=== PATIENT | female | born 1935 | race Caucasian/White ===

== ENCOUNTER 2022-06-21 16:24 | Inpatient (IN) | payer MEDICARE ==
[2022-06-21] MEDS ORDERED: Ondansetron PF 4 MG/2 ML Vial IVP PRN (17:59)
[2022-06-21] MEDS ORDERED: Ondansetron ODT 4 MG TAB PO PRN (17:59)
[2022-06-21] MEDS ORDERED: Dextrose 5% in Water 1,000 ML IV PRN (18:12)
[2022-06-21] MEDS ORDERED: Dextrose 50% Abboject 50 ML SYRINGE SLOW IVP PRN (18:12)
[2022-06-21 19:24] LABS: #Eosinphils 0.2 10x3/uL (0.0-0.5); #Monocytes 0.9 10x3/uL (0.0-1.1); #Neutrophils 5.2 10x3/uL (1.5-8.4); %Basophils 0.3 % (0.0-2.0); %Eosinophils 2.2 % (0.0-6.0); %Lymphocytes 17.7 % (18.0-47.0); %Monocytes 11.8 % (0.0-10.0); %Neutrophils 67.5 % (40.0-75.0); Hemoglobin 8.3 g/dL (12.0-15.5); Mean Corpuscular HGB CONC 32.5 g/dL (32.0-36.0); Mean Corpuscular Hemoglobin 30.4 pg (27.0-33.0); Mean Corpuscular Volume 93.4 fl (81.6-98.3); Mean Platelet Volume 10.8 fl (7.4-10.4); Platelet Count 231 10x3/uL (150-450); RBC Distribution Width 14.6 % (11.5-14.5); Red Blood Cell (RBC) Count 2.73 10x6/uL (3.90-5.03); White Blood Cell (WBC) Count 7.7 10x3/uL (3.5-10.5)
[2022-06-21] MEDS ORDERED: hydrALAZINE 20 MG/ML VIAL SLOW IVP PRN (19:27)
[2022-06-21 19:35] LABS: Anion Gap 16 mmol/L (10-20); BUN (Urea Nitrogen) 68 mg/dL (9.8-20.1); Calc. Creatinine Clearance 13 mL/min (70-130); Carbon Dioxide 18 mmol/L (23-31); Chloride 100 mmol/L (98-107); Estimated GFR 10; Glucose 212 mg/dL (83-110); Sodium 130 mmol/L (136-145)
[2022-06-21] MEDS ORDERED: Transdermal Patch Removal TOP PRN (20:08)
[2022-06-21] MEDS: hydrALAZINE 25 MG TAB PO SCH (20:25)
[2022-06-21] MEDS: Apixaban 2.5 MG TAB PO SCH (20:26)
[2022-06-21] MEDS: Lantus 1000 UNITS/10 ML VIAL SC SCH (20:29)
[2022-06-22 03:38] LABS: #Eosinphils 0.2 10x3/uL (0.0-0.5); #Monocytes 0.9 10x3/uL (0.0-1.1); #Neutrophils 3.8 10x3/uL (1.5-8.4); %Basophils 0.3 % (0.0-2.0); %Eosinophils 2.4 % (0.0-6.0); %Monocytes 14.6 % (0.0-10.0); %Neutrophils 61.4 % (40.0-75.0); Hemoglobin 7.7 g/dL (12.0-15.5); Mean Corpuscular HGB CONC 32.8 g/dL (32.0-36.0); Mean Corpuscular Hemoglobin 30.7 pg (27.0-33.0); Mean Corpuscular Volume 93.6 fl (81.6-98.3); Mean Platelet Volume 10.8 fl (7.4-10.4); Platelet Count 213 10x3/uL (150-450); RBC Distribution Width 14.5 % (11.5-14.5); Red Blood Cell (RBC) Count 2.51 10x6/uL (3.90-5.03); White Blood Cell (WBC) Count 6.2 10x3/uL (3.5-10.5)
[2022-06-22 03:56] LABS: Anion Gap 14 mmol/L (10-20); BUN (Urea Nitrogen) 69 mg/dL (9.8-20.1); Calc. Creatinine Clearance 14 mL/min (70-130); Calcium 8.9 mg/dL (7.8-10.44); Carbon Dioxide 19 mmol/L (23-31); Chloride 102 mmol/L (98-107); Estimated GFR 10; Glucose 132 mg/dL (83-110); Potassium 3.7 mmol/L (3.5-5.1); Sodium 131 mmol/L (136-145)
[2022-06-22] MEDS: Levothyroxine Sodium 100 MCG TAB PO SCH (07:03)
[2022-06-22] MEDS ORDERED: Albumin 25% 25 GM/100 ML BOT IVPB SCH (07:30)
[2022-06-22 07:47] LABS: Bilirubin Neg (Negative); Blood, Urine 10 (Negative); Clarity Cloudy (Clear); Glucose, Urine (Dipstick) Normal (Negative); Ketone, Urine Negative (Negative); Leukocyte 500 (Negative); Nitrite Negative (Negative); Protein, Urine (Dipstick) 100 mg/dl (Neg-Trace); Urobilinogen Normal mg/dL (Less than 2)
[2022-06-22 08:03] LABS: Bacteria/HPF 4+ HPF (None Seen); RBC/HPF 0-3 HPF (0-3); WBC/HPF Greater Than 50 HPF (0-3)
[2022-06-22] MEDS: EPOETIN ALFA-EPBX (ESRD) 10,000 UNIT/ML VIAL IVP SCH (08:53)
[2022-06-22] MEDS: Famotidine 20 MG TAB PO SCH (08:54)
[2022-06-22] MEDS: Amlodipine 10 MG TAB PO SCH (08:54)
[2022-06-22] MEDS: Ferrous Sulfate 325 MG TAB PO SCH ×2 (08:54→16:21)
[2022-06-22] MEDS: hydrALAZINE 25 MG TAB PO SCH ×3 (08:54→21:31)
[2022-06-22] MEDS: Cholecalciferol 1,000 UNITS (25 MCG) TAB PO SCH (08:54)
[2022-06-22] MEDS: Apixaban 2.5 MG TAB PO SCH ×2 (08:54→21:32)
[2022-06-22] MEDS ORDERED: CEFAZOLIN 1 GM in Sodium Chloride 0.9% 100 ML IVPB SCH (10:53)
[2022-06-22] MEDS: CEFAZOLIN 0.5 GM, Admixture Fee 1 EACH in Sodium Chloride 0.9% 100 ML IVPB SCH (12:43)
[2022-06-22] MEDS: Lidocaine 5% Patch TD PRN (16:24)
[2022-06-22] MEDS: Lantus 1000 UNITS/10 ML VIAL SC SCH (21:32)
[2022-06-23 05:00] LABS: #Eosinphils 0.1 10x3/uL (0.0-0.5); #Neutrophils 4.8 10x3/uL (1.5-8.4); %Basophils 0.1 % (0.0-2.0); %Eosinophils 1.8 % (0.0-6.0); %Lymphocytes 16.4 % (18.0-47.0); %Monocytes 13.8 % (0.0-10.0); %Neutrophils 67.5 % (40.0-75.0); Hemoglobin 7.4 g/dL (12.0-15.5); Mean Corpuscular HGB CONC 31.6 g/dL (32.0-36.0); Mean Corpuscular Hemoglobin 29.5 pg (27.0-33.0); Mean Corpuscular Volume 93.2 fl (81.6-98.3); Mean Platelet Volume 11.7 fl (7.4-10.4); Platelet Count 223 10x3/uL (150-450); RBC Distribution Width 14.6 % (11.5-14.5); Red Blood Cell (RBC) Count 2.51 10x6/uL (3.90-5.03); White Blood Cell (WBC) Count 7.1 10x3/uL (3.5-10.5)
[2022-06-23] MEDS: Levothyroxine Sodium 100 MCG TAB PO SCH (05:12)
[2022-06-23 05:28] LABS: Anion Gap 15 mmol/L (10-20); BUN (Urea Nitrogen) 71 mg/dL (9.8-20.1); Calc. Creatinine Clearance 13 mL/min (70-130); Calcium 8.9 mg/dL (7.8-10.44); Carbon Dioxide 18 mmol/L (23-31); Chloride 99 mmol/L (98-107); Estimated GFR 9; Glucose 112 mg/dL (83-110); Potassium 3.6 mmol/L (3.5-5.1); Sodium 128 mmol/L (136-145)
[2022-06-23] MEDS: hydrALAZINE 25 MG TAB PO SCH ×3 (08:32→20:36)
[2022-06-23] MEDS: Famotidine 20 MG TAB PO SCH (08:33)
[2022-06-23] MEDS: Ferrous Sulfate 325 MG TAB PO SCH ×2 (08:33→16:14)
[2022-06-23] MEDS: Apixaban 2.5 MG TAB PO SCH ×2 (08:34→20:37)
[2022-06-23] MEDS: Amlodipine 10 MG TAB PO SCH (08:34)
[2022-06-23] MEDS: Cholecalciferol 1,000 UNITS (25 MCG) TAB PO SCH (08:34)
[2022-06-23] MEDS: Albumin 25% 25 GM/100 ML BOT IVPB SCH ×3 (09:33→20:37)
[2022-06-23] MEDS: CEFAZOLIN 0.5 GM, Admixture Fee 1 EACH in Sodium Chloride 0.9% 100 ML IVPB SCH (12:33)
[2022-06-23] MEDS: HumaLOG 300 UNITS/3 ML VIAL SC PRN (20:37)
[2022-06-23] MEDS: Lantus 1000 UNITS/10 ML VIAL SC SCH (20:39)
[2022-06-24] MEDS: Albumin 25% 25 GM/100 ML BOT IVPB SCH (02:56)
[2022-06-24] MEDS: Levothyroxine Sodium 100 MCG TAB PO SCH (05:51)
[2022-06-24 05:52] LABS: #Eosinphils 0.1 10x3/uL (0.0-0.5); #Neutrophils 4.8 10x3/uL (1.5-8.4); %Basophils 0.1 % (0.0-2.0); %Eosinophils 1.6 % (0.0-6.0); %Lymphocytes 14.8 % (18.0-47.0); %Monocytes 14.5 % (0.0-10.0); %Neutrophils 68.6 % (40.0-75.0); Anion Gap 15 mmol/L (10-20); BUN (Urea Nitrogen) 73 mg/dL (9.8-20.1); Calc. Creatinine Clearance 14 mL/min (70-130); Calcium 9.2 mg/dL (7.8-10.44); Carbon Dioxide 19 mmol/L (23-31); Chloride 101 mmol/L (98-107); Estimated GFR 9; Glucose 81 mg/dL (83-110); Hemoglobin 7.1 g/dL (12.0-15.5); Mean Corpuscular HGB CONC 32.7 g/dL (32.0-36.0); Mean Corpuscular Volume 91.6 fl (81.6-98.3); Mean Platelet Volume 11.5 fl (7.4-10.4); Platelet Count 215 10x3/uL (150-450); Potassium 3.7 mmol/L (3.5-5.1); RBC Distribution Width 14.5 % (11.5-14.5); Red Blood Cell (RBC) Count 2.37 10x6/uL (3.90-5.03); Sodium 131 mmol/L (136-145)
[2022-06-24] MEDS: Ferrous Sulfate 325 MG TAB PO SCH ×2 (08:47→16:26)
[2022-06-24] MEDS: Amlodipine 10 MG TAB PO SCH (08:47)
[2022-06-24] MEDS: Apixaban 2.5 MG TAB PO SCH (08:47)
[2022-06-24] MEDS: Cholecalciferol 1,000 UNITS (25 MCG) TAB PO SCH (08:47)
[2022-06-24] MEDS: Famotidine 20 MG TAB PO SCH (08:48)
[2022-06-24] MEDS: hydrALAZINE 25 MG TAB PO SCH ×3 (08:51→21:31)
[2022-06-24 09:13] LABS: HBSAg Index 0.23 S/CO (0-0.99); Hep B Surf Ag Non-Reactive S/CO (NonReactive)
[2022-06-24] MEDS ORDERED: Bumetanide 1 MG/4 ML VIAL IVP SCH (09:30)
[2022-06-24 13:21] LABS: HBSAB Concentration Less than 8.00 mIU/mL; Hep B Core Total Ab Non-Reactive (NonReactive); Hep B Core Total Index 0.11 S/CO (0-0.79); Hep B Surf AB Non-Reactive (NonReactive); Hep C IgG Ab Non-Reactive (NonReactive); Hep C Index 0.07 S/CO (0-0.79)
[2022-06-24] MEDS: Lidocaine 5% Patch TD PRN (15:23)
[2022-06-24] MEDS: CEFAZOLIN 0.5 GM, Admixture Fee 1 EACH in Sodium Chloride 0.9% 100 ML IVPB SCH (15:42)
[2022-06-24] MEDS ORDERED: Docusate 100 MG CAP PO PRN (18:20)
[2022-06-24] MEDS ORDERED: Bisacodyl 5 MG TAB PO PRN (18:20)
[2022-06-24] MEDS: HumaLOG 300 UNITS/3 ML VIAL SC PRN (21:46)
[2022-06-24] MEDS: Lantus 1000 UNITS/10 ML VIAL SC SCH (21:46)
[2022-06-25 05:12] LABS: #Eosinphils 0.1 10x3/uL (0.0-0.5); #Neutrophils 4.6 10x3/uL (1.5-8.4); %Basophils 0.3 % (0.0-2.0); %Eosinophils 1.9 % (0.0-6.0); %Lymphocytes 15.7 % (18.0-47.0); %Monocytes 14.5 % (0.0-10.0); %Neutrophils 67.2 % (40.0-75.0); Mean Corpuscular HGB CONC 34.5 g/dL (32.0-36.0); Mean Corpuscular Hemoglobin 31.1 pg (27.0-33.0); Mean Corpuscular Volume 90.3 fl (81.6-98.3); Mean Platelet Volume 11.1 fl (7.4-10.4); Platelet Count 188 10x3/uL (150-450); RBC Distribution Width 14.5 % (11.5-14.5); Red Blood Cell (RBC) Count 2.89 10x6/uL (3.90-5.03); White Blood Cell (WBC) Count 6.9 10x3/uL (3.5-10.5)
[2022-06-25 05:14] LABS: Anion Gap 13 mmol/L (10-20); BUN (Urea Nitrogen) 64 mg/dL (9.8-20.1); Calc. Creatinine Clearance 16 mL/min (70-130); Carbon Dioxide 21 mmol/L (23-31); Chloride 102 mmol/L (98-107); Estimated GFR 12; Glucose 90 mg/dL (83-110); Potassium 3.5 mmol/L (3.5-5.1); Sodium 132 mmol/L (136-145)
[2022-06-25] MEDS: Levothyroxine Sodium 100 MCG TAB PO SCH (06:11)
[2022-06-25] MEDS: hydrALAZINE 25 MG TAB PO SCH ×3 (08:55→21:00)
[2022-06-25] MEDS: Cholecalciferol 1,000 UNITS (25 MCG) TAB PO SCH (08:55)
[2022-06-25] MEDS: Ferrous Sulfate 325 MG TAB PO SCH ×2 (08:55→16:21)
[2022-06-25] MEDS: Amlodipine 10 MG TAB PO SCH (08:55)
[2022-06-25] MEDS: Famotidine 20 MG TAB PO SCH (08:56)
[2022-06-25] MEDS: CEFAZOLIN 0.5 GM, Admixture Fee 1 EACH in Sodium Chloride 0.9% 100 ML IVPB SCH (11:54)
[2022-06-25] MEDS: Lantus 1000 UNITS/10 ML VIAL SC SCH (22:43)
[2022-06-26 05:21] LABS: #Eosinphils 0.1 10x3/uL (0.0-0.5); #Monocytes 1.2 10x3/uL (0.0-1.1); #Neutrophils 6.2 10x3/uL (1.5-8.4); %Basophils 0.2 % (0.0-2.0); %Eosinophils 0.8 % (0.0-6.0); %Lymphocytes 13.3 % (18.0-47.0); %Neutrophils 71.4 % (40.0-75.0); Hemoglobin 9.3 g/dL (12.0-15.5); Mean Corpuscular HGB CONC 33.8 g/dL (32.0-36.0); Mean Corpuscular Hemoglobin 30.9 pg (27.0-33.0); Mean Corpuscular Volume 91.4 fl (81.6-98.3); Mean Platelet Volume 10.8 fl (7.4-10.4); Platelet Count 188 10x3/uL (150-450); RBC Distribution Width 14.6 % (11.5-14.5); Red Blood Cell (RBC) Count 3.01 10x6/uL (3.90-5.03); White Blood Cell (WBC) Count 8.7 10x3/uL (3.5-10.5)
[2022-06-26 05:26] LABS: Anion Gap 12 mmol/L (10-20); BUN (Urea Nitrogen) 47 mg/dL (9.8-20.1); Calc. Creatinine Clearance 21 mL/min (70-130); Calcium 9.2 mg/dL (7.8-10.44); Carbon Dioxide 22 mmol/L (23-31); Chloride 103 mmol/L (98-107); Estimated GFR 16; Glucose 140 mg/dL (83-110); Potassium 3.6 mmol/L (3.5-5.1); Sodium 133 mmol/L (136-145)
[2022-06-26] MEDS: Levothyroxine Sodium 100 MCG TAB PO SCH (06:03)
[2022-06-26] MEDS: Famotidine 20 MG TAB PO SCH (08:24)
[2022-06-26] MEDS: hydrALAZINE 25 MG TAB PO SCH ×3 (08:24→21:41)
[2022-06-26] MEDS: Lidocaine 5% Patch TD PRN (08:24)
[2022-06-26] MEDS: Cholecalciferol 1,000 UNITS (25 MCG) TAB PO SCH (08:24)
[2022-06-26] MEDS: Ferrous Sulfate 325 MG TAB PO SCH (08:24)
[2022-06-26] MEDS: Amlodipine 10 MG TAB PO SCH (08:24)
[2022-06-26 09:30] LABS: Iron 18 ug/dL (50-170); Iron Binding Capacity, Total 193 mcg/dL (265-497)
[2022-06-26] MEDS: Iron, Sodium Ferric Gluconate 250 MG, Admixture Fee 1 EACH in Sodium Chloride 0.9% 250 ... IVPB SCH (15:50)
[2022-06-26] MEDS: Lantus 1000 UNITS/10 ML VIAL SC SCH (22:06)
[2022-06-27] MEDS: Levothyroxine Sodium 100 MCG TAB PO SCH (06:02)
[2022-06-27] MEDS: Cholecalciferol 1,000 UNITS (25 MCG) TAB PO SCH (08:18)
[2022-06-27] MEDS: Amlodipine 10 MG TAB PO SCH (08:18)
[2022-06-27] MEDS: hydrALAZINE 25 MG TAB PO SCH ×3 (08:18→22:05)
[2022-06-27] MEDS: Famotidine 20 MG TAB PO SCH (08:18)
[2022-06-27] MEDS: HumaLOG 300 UNITS/3 ML VIAL SC PRN (12:08)
[2022-06-27] MEDS: Iron, Sodium Ferric Gluconate 250 MG, Admixture Fee 1 EACH in Sodium Chloride 0.9% 250 ... IVPB SCH (14:51)
[2022-06-27 15:33] LABS: Albumin 3.7 g/dL (3.4-4.8); Anion Gap 14 mmol/L (10-20); BUN (Urea Nitrogen) 28 mg/dL (9.8-20.1); BUN/Creatinine Ratio 13.93; Calc. Creatinine Clearance 29 mL/min (70-130); Calcium 9.4 mg/dL (7.8-10.44); Carbon Dioxide 23 mmol/L (23-31); Chloride 101 mmol/L (98-107); Estimated GFR 24; Glucose 167 mg/dL (83-110); Phosphorus 2.1 mg/dL (2.3-4.7); Potassium 3.8 mmol/L (3.5-5.1); Sodium 134 mmol/L (136-145)
[2022-06-27] MEDS: Lantus 1000 UNITS/10 ML VIAL SC SCH (22:06)
[2022-06-28] MEDS: Levothyroxine Sodium 100 MCG TAB PO SCH (05:26)
[2022-06-28 05:44] LABS: Albumin 3.4 g/dL (3.4-4.8); Anion Gap 14 mmol/L (10-20); BUN (Urea Nitrogen) 29 mg/dL (9.8-20.1); BUN/Creatinine Ratio 13.81; Calc. Creatinine Clearance 28 mL/min (70-130); Carbon Dioxide 24 mmol/L (23-31); Chloride 101 mmol/L (98-107); Estimated GFR 22; Glucose 82 mg/dL (83-110); Phosphorus 2.5 mg/dL (2.3-4.7); Potassium 3.5 mmol/L (3.5-5.1); Sodium 135 mmol/L (136-145)
[2022-06-28] MEDS: Amlodipine 10 MG TAB PO SCH (08:21)
[2022-06-28] MEDS: hydrALAZINE 25 MG TAB PO SCH ×2 (08:21→14:52)
[2022-06-28] MEDS: Cholecalciferol 1,000 UNITS (25 MCG) TAB PO SCH (08:21)
[2022-06-28] MEDS: Famotidine 20 MG TAB PO SCH (08:21)
[2022-06-28] MEDS: Iron, Sodium Ferric Gluconate 250 MG, Admixture Fee 1 EACH in Sodium Chloride 0.9% 250 ... IVPB SCH (13:34)
[2022-06-28] MEDS: HumaLOG 300 UNITS/3 ML VIAL SC PRN (16:34)
[2022-06-28] MEDS ORDERED: Tuberculin PPD 0.1 ML VIAL I-DERMAL SCH (23:30)
[2022-06-29] MEDS: Lantus 1000 UNITS/10 ML VIAL SC SCH ×2 (04:13→21:32)
[2022-06-29] MEDS: hydrALAZINE 25 MG TAB PO SCH ×4 (05:03→21:31)
[2022-06-29 05:37] LABS: #Eosinphils 0.2 10x3/uL (0.0-0.5); #Monocytes 0.9 10x3/uL (0.0-1.1); #Neutrophils 5.4 10x3/uL (1.5-8.4); %Basophils 0.3 % (0.0-2.0); %Eosinophils 2.4 % (0.0-6.0); %Lymphocytes 13.5 % (18.0-47.0); %Monocytes 11.5 % (0.0-10.0); Hemoglobin 9.6 g/dL (12.0-15.5); Mean Corpuscular HGB CONC 32.9 g/dL (32.0-36.0); Mean Corpuscular Volume 94.2 fl (81.6-98.3); Mean Platelet Volume 11.1 fl (7.4-10.4); Platelet Count 191 10x3/uL (150-450); RBC Distribution Width 14.5 % (11.5-14.5); White Blood Cell (WBC) Count 7.5 10x3/uL (3.5-10.5)
[2022-06-29 05:40] LABS: Anion Gap 12 mmol/L (10-20); BUN (Urea Nitrogen) 15 mg/dL (9.8-20.1); Calc. Creatinine Clearance 36 mL/min (70-130); Carbon Dioxide 27 mmol/L (23-31); Chloride 102 mmol/L (98-107); Estimated GFR 31; Glucose 160 mg/dL (83-110); Potassium 3.8 mmol/L (3.5-5.1); Sodium 137 mmol/L (136-145)
[2022-06-29] MEDS ORDERED: Bupivacaine 0.25% HCL 30 ML VIAL ONE (06:44)
[2022-06-29] MEDS ORDERED: EPINEPHrine 1 MG/ML AMP ONE (06:46)
[2022-06-29] MEDS ORDERED: PROPOFOL 20 ML ONE ×2 (06:47)
[2022-06-29] MEDS ORDERED: Lidocaine 1% PF 5 ML VIAL ONE (06:47)
[2022-06-29] MEDS ORDERED: Fentanyl 100 MCG/2 ML VIAL ONE (06:51)
[2022-06-29] MEDS ORDERED: Ondansetron PF 4 MG/2 ML Vial ONE (07:15)
[2022-06-29] MEDS ORDERED: CEFAZOLIN 1 GM VIAL ONE (07:27)
[2022-06-29] MEDS: Amlodipine 10 MG TAB PO SCH (08:37)
[2022-06-29] MEDS: Famotidine 20 MG TAB PO SCH (08:37)
[2022-06-29] MEDS: Cholecalciferol 1,000 UNITS (25 MCG) TAB PO SCH (08:37)
[2022-06-29] MEDS: Levothyroxine Sodium 100 MCG TAB PO SCH (08:37)
[2022-06-29] MEDS: EPOETIN ALFA-EPBX (ESRD) 10,000 UNIT/ML VIAL IVP SCH (12:16)
[2022-06-29] MEDS: Iron, Sodium Ferric Gluconate 250 MG, Admixture Fee 1 EACH in Sodium Chloride 0.9% 250 ... IVPB SCH (15:22)
[2022-06-29] MEDS: HumaLOG 300 UNITS/3 ML VIAL SC PRN ×2 (17:34→21:33)
[2022-06-30 04:44] LABS: #Eosinphils 0.1 10x3/uL (0.0-0.5); #Monocytes 1.1 10x3/uL (0.0-1.1); #Neutrophils 5.3 10x3/uL (1.5-8.4); %Basophils 0.4 % (0.0-2.0); %Eosinophils 1.8 % (0.0-6.0); %Lymphocytes 17.9 % (18.0-47.0); %Monocytes 13.2 % (0.0-10.0); %Neutrophils 65.9 % (40.0-75.0); Hemoglobin 9.2 g/dL (12.0-15.5); Mean Corpuscular HGB CONC 31.6 g/dL (32.0-36.0); Mean Corpuscular Hemoglobin 30.3 pg (27.0-33.0); Mean Corpuscular Volume 95.7 fl (81.6-98.3); Mean Platelet Volume 10.9 fl (7.4-10.4); Platelet Count 207 10x3/uL (150-450); RBC Distribution Width 14.9 % (11.5-14.5); Red Blood Cell (RBC) Count 3.04 10x6/uL (3.90-5.03)
[2022-06-30 04:57] LABS: Anion Gap 12 mmol/L (10-20); BUN (Urea Nitrogen) 21 mg/dL (9.8-20.1); Calc. Creatinine Clearance 27 mL/min (70-130); Calcium 8.8 mg/dL (7.8-10.44); Carbon Dioxide 27 mmol/L (23-31); Chloride 102 mmol/L (98-107); Estimated GFR 22; Glucose 118 mg/dL (83-110); Sodium 137 mmol/L (136-145)
[2022-06-30] MEDS: Levothyroxine Sodium 100 MCG TAB PO SCH (06:19)
[2022-06-30] MEDS: Cholecalciferol 1,000 UNITS (25 MCG) TAB PO SCH (09:06)
[2022-06-30] MEDS: Famotidine 20 MG TAB PO SCH (09:06)
[2022-06-30] MEDS: Amlodipine 10 MG TAB PO SCH (09:06)
[2022-06-30] MEDS: hydrALAZINE 25 MG TAB PO SCH ×3 (09:06→21:54)
[2022-06-30] MEDS ORDERED: Heparin 10,000 UNITS/ 10 ML VIAL SLOW IVP PRN (10:00)
[2022-06-30] MEDS: Apixaban 2.5 MG TAB PO SCH (21:54)
[2022-06-30] MEDS: Lantus 1000 UNITS/10 ML VIAL SC SCH (21:57)
[2022-06-30] MEDS: HumaLOG 300 UNITS/3 ML VIAL SC PRN (21:57)
[2022-07-01 04:56] LABS: #Eosinphils 0.1 10x3/uL (0.0-0.5); #Monocytes 1.2 10x3/uL (0.0-1.1); #Neutrophils 5.7 10x3/uL (1.5-8.4); %Basophils 0.2 % (0.0-2.0); %Eosinophils 1.2 % (0.0-6.0); %Lymphocytes 14.1 % (18.0-47.0); %Monocytes 14.5 % (0.0-10.0); %Neutrophils 69.4 % (40.0-75.0); Anion Gap 12 mmol/L (10-20); BUN (Urea Nitrogen) 18 mg/dL (9.8-20.1); Calc. Creatinine Clearance 30 mL/min (70-130); Calcium 8.7 mg/dL (7.8-10.44); Carbon Dioxide 27 mmol/L (23-31); Chloride 99 mmol/L (98-107); Estimated GFR 25; Glucose 144 mg/dL (83-110); Hemoglobin 9.1 g/dL (12.0-15.5); Mean Corpuscular HGB CONC 31.9 g/dL (32.0-36.0); Mean Corpuscular Hemoglobin 30.3 pg (27.0-33.0); Platelet Count 179 10x3/uL (150-450); RBC Distribution Width 14.5 % (11.5-14.5); Sodium 134 mmol/L (136-145); White Blood Cell (WBC) Count 8.2 10x3/uL (3.5-10.5)
[2022-07-01] MEDS: Levothyroxine Sodium 100 MCG TAB PO SCH (05:33)
[2022-07-01] MEDS: Apixaban 2.5 MG TAB PO SCH ×2 (08:52→21:02)
[2022-07-01] MEDS: Famotidine 20 MG TAB PO SCH (08:53)
[2022-07-01] MEDS: Cholecalciferol 1,000 UNITS (25 MCG) TAB PO SCH (08:53)
[2022-07-01] MEDS: Amlodipine 10 MG TAB PO SCH (08:53)
[2022-07-01] MEDS: hydrALAZINE 25 MG TAB PO SCH ×3 (08:53→21:02)
[2022-07-01] MEDS: HumaLOG 300 UNITS/3 ML VIAL SC PRN ×3 (12:10→21:04)
[2022-07-01] MEDS: Lantus 1000 UNITS/10 ML VIAL SC SCH (21:04)
[2022-07-01] MEDS ORDERED: READ PPD TEST SITE PO SCH (23:30)
[2022-07-02 05:19] LABS: ALT (SGPT) Less than 6 U/L (8-55); AST (SGOT) 21 U/L (5-34); Albumin 3.1 g/dL (3.4-4.8); Alkaline Phosphatase 56 U/L (40-110); Anion Gap 11 mmol/L (10-20); BUN (Urea Nitrogen) 24 mg/dL (9.8-20.1); Bilirubin, Total 0.8 mg/dL (0.2-1.2); Calc. Creatinine Clearance 25 mL/min (70-130); Calcium 8.9 mg/dL (7.8-10.44); Carbon Dioxide 27 mmol/L (23-31); Chloride 98 mmol/L (98-107); Estimated GFR 21; Globulin 3.2 g/dL (2.4-3.5); Glucose 93 mg/dL (83-110); Magnesium 2.1 mg/dL (1.6-2.6); Phosphorus 2.4 mg/dL (2.3-4.7); Potassium 3.8 mmol/L (3.5-5.1); Protein, Total 6.3 g/dL (5.8-8.1); Sodium 132 mmol/L (136-145)
[2022-07-02 05:20] LABS: #Eosinphils 0.2 10x3/uL (0.0-0.5); #Monocytes 1.1 10x3/uL (0.0-1.1); %Basophils 0.3 % (0.0-2.0); %Eosinophils 2.4 % (0.0-6.0); %Lymphocytes 15.5 % (18.0-47.0); %Monocytes 14.4 % (0.0-10.0); %Neutrophils 66.7 % (40.0-75.0); Mean Corpuscular HGB CONC 32.5 g/dL (32.0-36.0); Mean Corpuscular Hemoglobin 30.6 pg (27.0-33.0); Mean Corpuscular Volume 94.2 fl (81.6-98.3); Mean Platelet Volume 10.6 fl (7.4-10.4); Platelet Count 191 10x3/uL (150-450); RBC Distribution Width 14.7 % (11.5-14.5); Red Blood Cell (RBC) Count 2.94 10x6/uL (3.90-5.03); White Blood Cell (WBC) Count 7.4 10x3/uL (3.5-10.5)
[2022-07-02] MEDS: Levothyroxine Sodium 100 MCG TAB PO SCH (05:40)
[2022-07-02] MEDS: Famotidine 20 MG TAB PO SCH (09:11)
[2022-07-02] MEDS: Amlodipine 10 MG TAB PO SCH (09:11)
[2022-07-02] MEDS: hydrALAZINE 25 MG TAB PO SCH ×4 (09:12→22:33)
[2022-07-02] MEDS: Cholecalciferol 1,000 UNITS (25 MCG) TAB PO SCH (09:12)
[2022-07-02] MEDS: Apixaban 2.5 MG TAB PO SCH ×2 (09:12→22:33)
[2022-07-02] MEDS: HumaLOG 300 UNITS/3 ML VIAL SC PRN (12:00)
[2022-07-02] MEDS: Lantus 1000 UNITS/10 ML VIAL SC SCH (22:34)
[2022-07-03 05:05] LABS: Anion Gap 12 mmol/L (10-20); BUN (Urea Nitrogen) 16 mg/dL (9.8-20.1); Calc. Creatinine Clearance 32 mL/min (70-130); Calcium 8.6 mg/dL (7.8-10.44); Carbon Dioxide 25 mmol/L (23-31); Chloride 100 mmol/L (98-107); Estimated GFR 27; Glucose 133 mg/dL (83-110); Phosphorus 2.1 mg/dL (2.3-4.7); Potassium 4.1 mmol/L (3.5-5.1); Sodium 133 mmol/L (136-145)
[2022-07-03] MEDS: Levothyroxine Sodium 100 MCG TAB PO SCH (05:10)
[2022-07-03 05:25] LABS: #Eosinphils 0.2 10x3/uL (0.0-0.5); #Neutrophils 4.8 10x3/uL (1.5-8.4); %Basophils 0.3 % (0.0-2.0); %Eosinophils 2.3 % (0.0-6.0); %Lymphocytes 15.7 % (18.0-47.0); %Monocytes 13.7 % (0.0-10.0); %Neutrophils 67.6 % (40.0-75.0); Hemoglobin 9.2 g/dL (12.0-15.5); Mean Corpuscular HGB CONC 32.5 g/dL (32.0-36.0); Mean Corpuscular Hemoglobin 30.8 pg (27.0-33.0); Mean Corpuscular Volume 94.6 fl (81.6-98.3); Platelet Count 193 10x3/uL (150-450); RBC Distribution Width 14.7 % (11.5-14.5); Red Blood Cell (RBC) Count 2.99 10x6/uL (3.90-5.03); White Blood Cell (WBC) Count 7.1 10x3/uL (3.5-10.5)
[2022-07-03] MEDS: Amlodipine 10 MG TAB PO SCH (09:55)
[2022-07-03] MEDS: Cholecalciferol 1,000 UNITS (25 MCG) TAB PO SCH (09:56)
[2022-07-03] MEDS: hydrALAZINE 25 MG TAB PO SCH ×3 (09:56→20:14)
[2022-07-03] MEDS: Apixaban 2.5 MG TAB PO SCH ×2 (09:56→20:14)
[2022-07-03] MEDS: Famotidine 20 MG TAB PO SCH (09:59)
[2022-07-03] MEDS: HumaLOG 300 UNITS/3 ML VIAL SC PRN ×2 (12:30→17:24)
[2022-07-03] MEDS ORDERED: Acetaminophen 325 MG TAB PO PRN (20:35)
[2022-07-03] MEDS: Lantus 1000 UNITS/10 ML VIAL SC SCH (21:05)
[2022-07-04 05:04] LABS: Anion Gap 13 mmol/L (10-20); BUN (Urea Nitrogen) 24 mg/dL (9.8-20.1); Calc. Creatinine Clearance 25 mL/min (70-130); Carbon Dioxide 25 mmol/L (23-31); Chloride 98 mmol/L (98-107); Estimated GFR 21; Glucose 86 mg/dL (83-110); Potassium 4.6 mmol/L (3.5-5.1); Sodium 131 mmol/L (136-145)
[2022-07-04] MEDS: Levothyroxine Sodium 100 MCG TAB PO SCH (06:20)
[2022-07-04] MEDS: Amlodipine 10 MG TAB PO SCH (09:27)
[2022-07-04] MEDS: hydrALAZINE 25 MG TAB PO SCH ×3 (09:27→21:35)
[2022-07-04] MEDS: Apixaban 2.5 MG TAB PO SCH ×2 (09:27→21:35)
[2022-07-04] MEDS: Famotidine 20 MG TAB PO SCH (09:27)
[2022-07-04] MEDS: Cholecalciferol 1,000 UNITS (25 MCG) TAB PO SCH (09:27)
[2022-07-04 11:43] VITALS: BMI 33.8
[2022-07-04] MEDS: HumaLOG 300 UNITS/3 ML VIAL SC PRN (21:36)
[2022-07-04] MEDS: Lantus 1000 UNITS/10 ML VIAL SC SCH (21:36)
[2022-07-05] MEDS: Levothyroxine Sodium 100 MCG TAB PO SCH (05:29)
[2022-07-05] MEDS: Apixaban 2.5 MG TAB PO SCH ×2 (09:49→22:24)
[2022-07-05] MEDS: Famotidine 20 MG TAB PO SCH (09:49)
[2022-07-05] MEDS: Cholecalciferol 1,000 UNITS (25 MCG) TAB PO SCH (09:49)
[2022-07-05] MEDS: Amlodipine 10 MG TAB PO SCH (09:49)
[2022-07-05] MEDS: hydrALAZINE 25 MG TAB PO SCH ×3 (09:54→22:24)
[2022-07-05] MEDS: Lantus 1000 UNITS/10 ML VIAL SC SCH (22:23)
[2022-07-06] MEDS: Levothyroxine Sodium 100 MCG TAB PO SCH (06:31)
[2022-07-06] MEDS: Cholecalciferol 1,000 UNITS (25 MCG) TAB PO SCH (09:34)
[2022-07-06] MEDS: hydrALAZINE 25 MG TAB PO SCH ×2 (09:34→15:47)
[2022-07-06] MEDS: Apixaban 2.5 MG TAB PO SCH (09:34)
[2022-07-06] MEDS: Amlodipine 10 MG TAB PO SCH (09:35)
[2022-07-06] MEDS: Famotidine 20 MG TAB PO SCH (09:36)
[2022-07-06] MEDS: EPOETIN ALFA-EPBX (ESRD) 10,000 UNIT/ML VIAL IVP SCH (09:37)
[2022-07-06 17:44] VITALS: BP 155/67; TEMP 98.1
== END 2022-07-06 19:05 | DRG 673 ==
LOC: CSHTELE 16:24
PROVIDERS: ADMIT Internal Medicine; ATTEND Hospitalist
PROC: 8E0ZXY6 Isolation (ICD-10-PCS; principal; 2022-06-21)
PROC: 30233J1 Transfusion of Nonautologous Serum Albumin into Peripheral Vein, Percutaneous Approach (ICD-10-PCS; 2022-06-22)
PROC: 06HY33Z Insertion of Infusion Device into Lower Vein, Percutaneous Approach (ICD-10-PCS; 2022-06-24)
PROC: 30233N1 Transfusion of Nonautologous Red Blood Cells into Peripheral Vein, Percutaneous Approach (ICD-10-PCS; 2022-06-24)
PROC: 5A1D70Z Performance of Urinary Filtration, Intermittent, Less than 6 Hours Per Day (ICD-10-PCS; 2022-06-24)
PROC: 0JH60XZ Insertion of Tunneled Vascular Access Device into Chest Subcutaneous Tissue and Fascia, Open Approach (ICD-10-PCS; 2022-06-29)
PROC: 02HV33Z Insertion of Infusion Device into Superior Vena Cava, Percutaneous Approach (ICD-10-PCS; 2022-06-29)
PROC: B5181ZA Fluoroscopy of Superior Vena Cava using Low Osmolar Contrast, Guidance (ICD-10-PCS; 2022-06-29)
DX: N17.9 Acute kidney failure, unspecified (principal); I50.33 Acute on chronic diastolic (congestive) heart failure; U07.1 COVID-19; J96.01 Acute respiratory failure with hypoxia; I13.0 Hypertensive heart and chronic kidney disease with heart failure and stage 1 through stage 4 chronic kidney disease, or unspecified chronic kidney disease; N39.0 Urinary tract infection, site not specified; E87.1 Hypo-osmolality and hyponatremia; N18.6 End stage renal disease; M10.9 Gout, unspecified; K21.9 Gastro-esophageal reflux disease without esophagitis; E78.5 Hyperlipidemia, unspecified; M48.061 Spinal stenosis, lumbar region without neurogenic claudication; E11.22 Type 2 diabetes mellitus with diabetic chronic kidney disease; I48.91 Unspecified atrial fibrillation; G89.29 Other chronic pain; M54.9 Dorsalgia, unspecified; Z96.659 Presence of unspecified artificial knee joint; M72.0 Palmar fascial fibromatosis [Dupuytren]; E03.9 Hypothyroidism, unspecified; D63.1 Anemia in chronic kidney disease; G47.33 Obstructive sleep apnea (adult) (pediatric); R53.81 Other malaise; E66.01 Morbid (severe) obesity due to excess calories; E87.5 Hyperkalemia; Z98.890 Other specified postprocedural states; Z68.32 Body mass index [BMI] 32.0-32.9, adult; Z88.8 Allergy status to other drugs, medicaments and biological substances; Z79.899 Other long term (current) drug therapy; Z79.82 Long term (current) use of aspirin; Z79.890 Hormone replacement therapy; Z90.710 Acquired absence of both cervix and uterus; Z98.49 Cataract extraction status, unspecified eye
CPT/HCPCS: 36415; 36416; 36430; 71045; 80048; 80053; 80069; 81001; 82728; 83540; 83550; 83735; 84100; 85025; 86580; 86704; 86850; 86900; 86901; 87340; 90935; 93005; 93010; 93970; 94760; 97139; C1752; G0257; J0171; J0360; J0690; J1642; J1644; J1815; J2405; J2704; J2916; J3010; J3490; J7050; P9016; P9047; Q0162; Q5105; S0020; U0003; U0005